=== PATIENT | female | born 1995 | race Caucasian/White ===

== ENCOUNTER 2018-10-25 15:17 | Emergency (ER) | payer MEDICAID ==
[~2018-10-25] VITALS: Ht 167.6 cm; Wt 64.9 kg
[2018-10-25 15:43] VITALS: BP 125/59
--- NOTE | 2018-10-25 16:23 | NUR ---
PT TO ER BED 3
[2018-10-25 16:25] LABS: BASOPHILS % (AUTO) 0.7 % (0.0-2.0); EOSINOPHILS # (AUTO) 0.4 K/uL (0-0.4); EOSINOPHILS % (AUTO) 5.4 % (0.0-4.0); HEMATOCRIT 29.5 % (36-48); HEMOGLOBIN 9.8 g/dL (12.0-16.0); LYMPHOCYTES # (AUTO) 2.4 K/uL (2.5-16.5); LYMPHOCYTES % (AUTO) 35.9 % (20.5-51.1); MEAN CORPUSCULAR HEMOGLOBIN 30 pg (27-31); MEAN CORPUSCULAR HGB CONC 33 g/dL (33-37); MEAN CORPUSCULAR VOLUME 89.7 fL (80-94); MONOCYTES # (AUTO) 0.3 K/uL (0.8-1.0); NEUTROPHILS # (AUTO) 3.7 K/uL (1.8-7.7); PLATELET COUNT (AUTO) 300 K/uL (140-450); RED BLOOD CELL COUNT(AUTO) 3.28 MIL/uL (4.20-5.40); RED CELL DISTRIBUTION WIDTH 15.8 % (11.6-13.7); WHITE BLOOD COUNT (AUTO) 6.8 K/uL (4.8-10.8)
--- NOTE | 2018-10-25 16:25 | NUR ---
BIB SELF. C/O RECURRING HEAVY VAGINAL BLEEDING X 1 WK ; >15 [place]/DAY GENERAL FATIGUE. PER PT SHE WENT TO [facility] FOR 72 HOLD AND LABS TAKEN ON 10/17/18 AND RESULTS SHOWED LOW HGB. PT IS CURRENTLY RESIDING AT [facility] IN [place]. PT STATES DIZZINESS. PT LOOKS PALE. STEADY GAIT. NO SOB NOTED. HOB UP. BED SIDE RAILS UP X1. ON LOW BED POSITION, LOCKED. ER MADE AWARE OF PT STATUS.
--- NOTE | 2018-10-25 16:30 | NUR ---
INSURANCE SALES SPECIALIST AT BEDSIDE.
[2018-10-25 16:52] LABS: APPEARANCE,URINE HAZY (CLEAR); BILIRUBIN,URINE NEGATIVE (NEGATIVE); BLOOD, URINE NEGATIVE (NEGATIVE); COLOR,URINE YELLOW (YELLOW); LEUKOCYTE ESTERASE ,URINE 1+ (NEGATIVE); NITRITE, URINE NEGATIVE (NEGATIVE); PH,URINE 7.5 (5.0-9.0); UGLUCOSE NEGATIVE (NEGATIVE)
[2018-10-25 16:59] LABS: PROTHROMBIN TIME 9.7 secs (10.8-13.4)
[2018-10-25 16:59] LABS: RBC,URINE 0-5 /HPF (0-5)
[2018-10-25 17:04] LABS: ALBUMIN 4.1 g/dL (3.4-5.0); ANION GAP 11.1 (8-16); CARBON DIOXIDE 29.6 mmol/L (21-32); CREATININE 1.1 mg/dL (0.6-1.3); POTASSIUM 3.7 mmol/L (3.5-5.1); TOTAL BILIRUBIN 0.3 mg/dL (0.0-1.0)
--- NOTE | 2018-10-25 18:45 | NUR ---
DR JO AT BEDSIDE.
--- NOTE | 2018-10-25 19:45 | NUR ---
Patient discharged with v/s stable. Written and verbal after care instructions given and explained. Patient alert, oriented and verbalized understanding of instructions. Ambulatory with steady gait. All questions addressed prior to discharge. ID band removed. Patient advised to follow up with PMD. Rx of PREMARIN given. Patient educated on indication of medication including possible reaction and side effects. Opportunity to ask questions provided and answered.
[2018-10-25 19:46] VITALS: BP 116/70
== END 2018-10-25 19:45 | disposition home or self-care (01) ==
LOC: MED 15:17
DX: N93.8 Other specified abnormal uterine and vaginal bleeding (principal); Z85.9 Personal history of malignant neoplasm, unspecified
CPT/HCPCS: 36415; 76856; 80053; 81001; 81025; 85025; 85610; 87086; 99284; Q0092

== ENCOUNTER 2018-11-11 20:17 | Emergency (ER) | payer MEDICAID ==
[~2018-11-11] VITALS: Ht 165.1 cm; Wt 68.0 kg
[2018-11-11 20:35] VITALS: BP 101/65
--- NOTE | 2018-11-11 21:18 | NUR ---
PT AMBULATED TO ER BED 08
--- NOTE | 2018-11-11 21:18 | NUR ---
23 y/o F came to ER for R side facial pain x2 weeks, with worsening symptoms today. Per pt, was seen at the [facility] thursday and diagnosed with pharyngitis. Hurts to swallow. no reddness or exudated noted to throat. R mandibular lymph nodes swollen. Self medicated with ibuprofen, no relief. ERMD notified. Will continue to monitor.
--- NOTE | 2018-11-11 22:28 | NUR ---
Dr. Ward at bedside evaulating pt.
[2018-11-11 22:50] VITALS: BP 112/72
--- NOTE | 2018-11-11 22:50 | NUR ---
Patient discharged with v/s stable. Written and verbal after care instructions given and explained. Patient alert, oriented and verbalized understanding of instructions. Ambulatory with steady gait. All questions addressed prior to discharge. ID band removed. Patient advised to follow up with PMD. Rx of PROMETHAZINE HYDROCHLORIDE/DEXTROMETHORPHAN HYDROBROMIDE 6.25MG-15MG/5ML given. Patient educated on indication of medication including possible reaction and side effects. Opportunity to ask questions provided and answered.
== END 2018-11-11 22:50 | disposition home or self-care (01) ==
LOC: MED 20:17
DX: R05 Cough (principal); J02.9 Acute pharyngitis, unspecified; K13.79 Other lesions of oral mucosa; Z98.890 Other specified postprocedural states; Z85.9 Personal history of malignant neoplasm, unspecified
CPT/HCPCS: 99283